=== PATIENT | male | born 1940 | race Caucasian/White ===

== ENCOUNTER 2019-04-17 10:34 | Inpatient (IN) ==
[2019-04-17] MEDS ORDERED: IOPAMIDOL 100 ML BOTTLE IV ONE (10:35)
[2019-04-17] MEDS ORDERED: LEVOFLOXACIN 750 MG/150 ML BAG IV ONE (11:10)
[2019-04-17] MEDS ORDERED: IPRATROPIUM/ALBUTEROL 3 ML AMPUL.NEB NEB ONE (11:12)
[2019-04-17] MEDS ORDERED: LEVOFLOXACIN 500 MG/100 ML BAG IV ONE (11:12)
[2019-04-17 11:28] LABS: Basophils # (Auto) 0 K/mcL (0.0-0.3); Basophils % (Auto) 0 % (0.0-2.0); Eosinophils # (Auto) 0.1 K/mcL (0.0-0.7); Eosinophils % (Auto) 0.9 % (0.0-7.0); Hematocrit 36.4 % (41.0-55.0); Hemoglobin 11.9 g/dL (13.5-16.5); Lymphocytes % (Auto) 10.9 % (15.5-49.0); Mean Cell Volume 78.9 fL (80.0-100.0); Mean Corpuscular HGB Conc 32.8 g/dL (31.0-36.0); Mean Platelet Volume 6.6 fL (7.4-10.4); Monocytes # (Auto) 0.6 K/mcL (0.1-0.9); Monocytes % (Auto) 7.2 % (1.0-12.0); Platelet Count 313 K/mcL (140-440); RBC 4.61 M/mcL (4.50-5.90); Red Cell Distribution Width 18.1 % (11.5-14.5); WBC 8.9 K/mcL (4.5-11.0)
--- NOTE | 2019-04-17 11:35 | XRay Report ---
CLINICAL INFORMATION: SOB COMPARISON: 03/23/2019 FINDINGS: Subtotal atelectasis of the left lung has developed with minimal residual apical aeration. There is leftward shifting of the cardiomediastinal silhouette. Moderate left pleural effusion noted. Right lung is well expanded and clear COPD noted. Cardiomediastinal silhouette is obscured by the opacified left hemithorax and difficult to evaluate. IMPRESSION: Near complete atelectasis of left lung with moderate left pleural effusion. Most common cause would be [place] of the the left mainstem bronchus with mucus or aspirated material. An obstructing tumor is possible, but less likely. Suggest chest CT Interpreted and Authenticated by: Woody Bernstein 04/17/19
[2019-04-17 11:59] LABS: ALT/SGPT 13 U/l (0-40); AST/SGOT 37 U/l (0-37); Albumin 2.9 gm/dL (3.2-5.2); Albumin/Globulin Ratio 0.8 (1.0-2.3); Alkaline Phosphatase 81 U/L (39-117); Bilirubin,Total 0.5 mg/dL (0.0-1.0); Blood Urea Nitrogen 11 mg/dl (8-23); Calcium 8.9 mg/dl (8.6-10.4); Carbon Dioxide 26 mmol/L (22-30); Chloride 83 mmol/L (96-108); Globulin 3.5 gm/dL (2.2-3.7); Glomerular Filtration Rate 102; Glucose 128 mg/dL (70-105)
--- NOTE | 2019-04-17 12:04 | Emergency Department Note ---
SOB HPI - General Chief Complaint: Shortness of Breath/Dyspnea Stated Complaint: Shortness of breath Time Seen by Provider: 04/17/19 10:57 Source: patient, EMS Mode of arrival: EMS Limitations: no limitations - History of Present Illness 78-year-old male presents with generalized weakness and shortness of breath that has been worsening over the last several weeks. A few weeks ago he was diagnosed with pneumonia and treated outpatient. Family member states they gave him a shot and put him on a Z-Brown. He is continued to be weak, have a cough, and was short of breath. This morning it seemed even worse and they called EMS to come pick him up. They note he is also been so weak that he has been falling a lot. He does live at home by himself. Positive chills but unknown fever. Patient is very poor historian. No nausea, vomiting, or diarrhea but does have a poor appetite. Family reports he continues to lose weight. No pedal edema. States he is short of breath all the time but definitely worse with exertion. Sitting up does not seem to help. Denies sore throat, ear pain, or other cold symptoms. States he has been dealing with back pain and left knee pain for a couple months and was told he has a compression fracture and pretty severe arthritis. - Related Data Home Medications Medication Instructions Recorded Confirmed No Known Home Meds 04/17/19 04/17/19 Allergies Allergy/AdvReac Type Severity Reaction Status Date / Time No Known Drug Allergies Allergy Verified 04/17/19 10:40 Review of Systems All systems ED: reviewed and negative except as stated. Past Medical History - Past Medical History [facility] Narrative: Medical History (Last Updated 04/13/19 @ 08:54 by Felipa Renae) Chronic neck pain (Chronic) Smoker (Chronic) COPD (chronic obstructive pulmonary disease) (Chronic) CAD (coronary artery disease) (Chronic) Fatigue (Chronic) Neck pain (Chronic) Family history of diabetes mellitus (Chronic) Sinusitis (Chronic) Abnormal radiologic finding of lung field (Chronic) Hyperlipidemia (Chronic) Left upper lobe pulmonary nodule (Chronic) Hypertension (Chronic) Lesion of face (Chronic) SOB (shortness of breath) (Chronic) Pneumonia (Chronic) Multiple fractures of ribs, left side, initial encounter for closed fracture (Chronic) Hyponatremia (Chronic) Past Surgical History (Last Updated 10/10/19 @ 08:54 by Felipa Renae) No pertinent past surgical history (Chronic) Medical history: Reports: other (Recent pneumonia and possible compression fracture in the lumbar spine) - Social History smoking status: Current every day smoker Physical Exam Limitations: no limitations General appearance: alert (Alert and responds appropriately but poor historian and forgetful.) Head: atraumatic, normocephalic, normal inspection Eye: Present: normal appearance. Absent: conjunctival injection ENT: Present: normal oropharynx, mucous membranes moist, TM's normal bilaterally, normal external ear exam Neck: Present: normal inspection, trachea midline. Absent: tenderness, lym phadenopathy Chest: Present: symmetric chest wall rise Respiratory: Present: respiratory distress (Mild tachypnea on arrival and oxygen saturations were originally 77% on room air but improved with oxygen.), rales/crackles (Coarse throughout but seem a little worse on the left.), accessory muscle use (mild) Cardiovascular: Present: tachycardia Abdominal: Present: soft, normal bowel sounds. Absent: distention, tenderness, mass Extremities: Present: normal inspection. Absent: pedal edema Neurological: Present: alert, oriented X3 Psychiatric: Present: normal affect, normal mood Skin: Present: warm, dry, intact, normal color, other (Frail-appearing) Course Course Narrative: CT scan shows large lung tumor with mets to liver. Pt (after much discussion with family) is adamant that he does not want any treatment or to see an oncologist. He just wants to be kept comfortable. He currently lives at home alone but would like to be admitted for a day or 2 and help get set up with hospice and then family will take him home and care for him at home where he would like to spend his final days and just be comfortable. @[id number] Dr. Hendrickson agrees to accept the patient. Vital Signs Temperature 98.3 F 04/17/19 10:35 Pulse Rate 118 H 04/17/19 10:35 Respiratory Rate 25 H 04/17/19 10:35 Blood Pressure 120/78 04/17/19 10:35 Pulse Oximetry (%) 86 L 04/17/19 10:35 Temperature 98.3 F 04/17/19 10:35 Pulse Rate 106 H 04/17/19 14:11 Respiratory Rate 15 04/17/19 14:11 Blood Pressure 129/75 04/17/19 14:21 Pulse Oximetry (%) 96 04/17/19 14:11 Shortness of Breath/Dyspnea - Lab Data Lab results reviewed: Yes I reviewed the patient's lab results. Result diagrams: 04/17/19 10:49 04/17/19 10:49 Lab Results 04/17/19 04/17/19 04/17/19 Range/Units 10:49 10:49 10:49 WBC 8.9 (4.5-11.0) K/mcL RBC 4.61 (4.50-5.90) M/mcL Hgb 11.9 L (13.5-16.5) g/dL Hct 36.4 L (41.0-55.0) % MCV 78.9 L (80.0-100.0) fL MCH 25.9 L (26.0-34.0) pg MCHC 32.8 (31.0-36.0) g/dL RDW 18.1 H (11.5-14.5) % Plt Count 313 (140-440) K/mcL MPV 6.6 L (7.4-10.4) fL Gran % 81.0 H (38.0-78.0) % Lymph % (Auto) 10.9 L (15.5-49.0) % [place] % (Auto) 7.2 (1.0-12.0) % Eos % (Auto) 0.9 (0.0-7.0) % Baso % (Auto) 0 (0.0-2.0) % Gran # 7.2 (1.8-8.0) K/mcL Lymph # (Auto) 1.0 L (1.5-4.8) K/mcL [place] # (Auto) 0.6 (0.1-0.9) K/mcL Eos # (Auto) 0.1 (0.0-0.7) K/mcL Baso # (Auto) 0 (0.0-0.3) K/mcL VBG Lactic Acid 1.7 (0.5-2.0) mmol/L Sodium 122 L (133-145) mmol/L Potassium 4.3 (3.3-5.1) mmol/L Chloride 83 L (96-108) mmol/L Carbon Dioxide 26 (22-30) mmol/L Anion Gap 13.0 (8-16) BUN 11 (8-23) mg/dl Creatinine 0.5 L (0.7-1.2) mg/dl GFR Calculation 102 Glucose 128 H (70-105) mg/dL Calcium 8.9 (8.6-10.4) mg/dl Total Bilirubin 0.5 (0.0-1.0) mg/dL AST 37 (0-37) U/l ALT 13 (0-40) U/l Alkaline Phosphatase 81 (39-117) U/L Total Protein 6.4 (5.9-8.4) gm/dL Albumin 2.9 L (3.2-5.2) gm/dL Globulin 3.5 (2.2-3.7) gm/dL Albumin/Globulin Ratio 0.8 L (1.0-2.3) Procalcitonin (<0.10) ng/mL 04/17/19 Range/Units 10:49 WBC (4.5-11.0) K/mcL RBC (4.50-5.90) M/mcL Hgb (13.5-16.5) g/dL Hct (41.0-55.0) % MCV (80.0-100.0) fL MCH (26.0-34.0) pg MCHC (31.0-36.0) g/dL RDW (11.5-14.5) % Plt Count (140-440) K/mcL MPV (7.4-10.4) fL Gran % (38.0-78.0) % Lymph % (Auto) (15.5-49.0) % [place] % (Auto) (1.0-12.0) % Eos % (Auto) (0.0-7.0) % Baso % (Auto) (0.0-2.0) % Gran # (1.8-8.0) K/mcL Lymph # (Auto) (1.5-4.8) K/mcL [place] # (Auto) (0.1-0.9) K/mcL Eos # (Auto) (0.0-0.7) K/mcL Baso # (Auto) (0.0-0.3) K/mcL VBG Lactic Acid (0.5-2.0) mmol/L Sodium (133-145) mmol/L Potassium (3.3-5.1) mmol/L Chloride (96-108) mmol/L Carbon Dioxide (22-30) mmol/L Anion Gap (8-16) BUN (8-23) mg/dl Creatinine (0.7-1.2) mg/dl GFR Calculation Glucose (70-105) mg/dL Calcium (8.6-10.4) mg/dl Total Bilirubin (0.0-1.0) mg/dL AST (0-37) U/l ALT (0-40) U/l Alkaline Phosphatase (39-117) U/L Total Protein (5.9-8.4) gm/dL Albumin (3.2-5.2) gm/dL Globulin (2.2-3.7) gm/dL Albumin/Globulin Ratio (1.0-2.3) Procalcitonin 0.41 (<0.10) ng/mL - Radiology Data Radiology results reviewed: Yes I reviewed the patient's radiology results. Disposition Pt seen by LUMP INSPECTOR/PA only: Yes Clinical Impression: Pneumonia, Hyponatremia, Generalized weakness, Recurrent falls, SOB (shortness of breath), Hypoxia, Lung mass Disposition: Xfer As Outpt/Obs ([facility]) Condition: Serious Referrals: Sachin Clifford MD [Primary Care Provider] - Time of Disposition: 15:25
[2019-04-17] MEDS ORDERED: NICOTINE 14 MG PATCH TOPICAL ONE (13:44)
--- NOTE | 2019-04-17 15:00 | Cat Scan Report ---
CLINICAL INFORMATION: History of smoking and weight loss. New onset left lung collapse COMPARISON: None. TECHNIQUE: 80 cc of Isovue-370 were injected intravenously, and 25 seconds later, 0.625 mm helical slices were obtained from the lung apices through the bases. Following reconstruction, 2.5 mm sagittal, coronal and axial reformations were processed and reviewed at lung, mediastinal and bone windows. 7 mm axial MIPS were also obtained to optimize pulmonary nodule detection. The exam was performed using radiation dose optimization techniques including, but not limited to, automated exposure control, adjustment of the mA and/or kV according to patient size and use of iterative reconstruction technique. FINDINGS: A large (4.3 x 6.1 cm) left hilar mass is encasing and obstructing the left mainstem bronchus resulting in near-complete left lung atelectasis with minimal residual aeration in the anterior segment left upper lobe. In addition to the mass, there are multiple moderately enlarged lymph nodes ranging up to 3.6 cm adjacent to the aortic arch, left hilum and pericarinal regions. Findings compatible with primary lung carcinoma with local metastatic adenopathy. As result of left lung collapse, there is leftward shifting of the cardiomediastinal silhouette and moderate left pleural effusion. Right lung shows mild centrilobular emphysema changes, but is otherwise clear without evidence of infiltrate. There is an 8 mm pleural-based nodule in the posterior basilar segment of the right lower lobe is likely of benign subpulmonic lymph node. The heart is mildly enlarged and extremely heavy atherosclerotic plaque in the coronary arteries. The central pulmonary arteries are mildly enlarged at 3.5 cm compatible with mild pulmonary hypertension. Thoracic aorta contains plaque is normal diameter. The distal thoracic esophagus is compressed by the massive adenopathy which could result in swallowing dysfunction. Images should the abdomen show scattered hepatic metastases: 3 cm subdiaphragmatic right hepatic lobe 14 mm anterior segment right hepatic lobe 2.6 cm the lateral segment left hepatic lobe three in the inferior right hepatic lobe ranging up to 12 mm. The gallbladder visualized kidneys and IMPRESSION: 1. Large (6 cm) left hilar mass encasing and obstructing the left mainstem bronchus resulting in subtotal atelectasis of the entire left lung. Multiple markedly enlarged lymph nodes in the left mediastinum and hilar region are compatible with metastatic adenopathy. In addition there are multiple hepatic metastases which are new from November 2007 CT. Findings compatible with advanced primary lung carcinoma with adenopathy and metastatic disease 2. Moderate left pleural effusion 3. Moderate centrilobular emphysema Interpreted and Authenticated by: Woody Bernstein 04/17/19
--- NOTE | 2019-04-17 16:07 | Internal Med History&Physical ---
Medical - H&P: HPI Patient information: Note initiated : 04/17/19 at 3:59 pm Service Date, if different from initiated Date: [] Patient: Matthew Gonzalez a 78 y/o M admitted on for Shortness of breath. Chief Complaint: [] History of present illness: Mr. Gonzalez is a 78 year old M Who presents the ED with shortness of breath and weakness. He has also fallen several times this week. Patient was seen at [facility] March for similar symptoms was diagnosed with pneumonia and given azithromycin. His symptoms have not improved. And of worsened and thus he presented again to the ED. Family states he has had poor oral intake because he has not much of appetite. He also lives by himself. He reports 50 pound weight loss over the past several months. He He was hypoxic in the mid 80s upon arrival In the ED he was found to have hyponatremia and chest x-ray showing complete whiteout of the left lung. CT of the chest showed a large 6cm hilar mass encasing and obstructing left mainstem bronchus resulting in subtotal atelectasis of the entire left lung multiple market enlarged lymph nodes in the left mediastinum and hilar region compatible with metastatic adenopathy. Also note multiple hepatic metastases. Also moderate pleural effusion and emphysema noted. These findings were presented to the family and and the patient and after discussion they/pt adamant about not seeking any treatment. He just wanted to be comfortable. Patient does live alone and family would like to set up hospice in the home and this course has been initiated. Review of Systems: Pertinent positives as above. Denies headache/fever/chills/nausea/vomiting/chest or abdominal pain/diarrhea. Remaining 10 point review of system reviewed negative Medical - H&P: PMH Medical history: Medical History (Last Updated 04/13/19 @ 08:54 by Felipa Renae) Chronic neck pain (Chronic) Smoker (Chronic) COPD (chronic obstructive pulmonary disease) (Chronic) CAD (coronary artery disease) (Chronic) Fatigue (Chronic) Neck pain (Chronic) Family history of diabetes mellitus (Chronic) Sinusitis (Chronic) Abnormal radiologic finding of lung field (Chronic) Hyperlipidemia (Chronic) Left upper lobe pulmonary nodule (Chronic) Hypertension (Chronic) Lesion of face (Chronic) SOB (shortness of breath) (Chronic) Pneumonia (Chronic) Multiple fractures of ribs, left side, initial encounter for closed fracture (Chronic) Hyponatremia (Chronic) Past Surgical History (Last Updated 04/13/19 @ 08:54 by Felipa Renae) Right leg surgery Family History (Last Updated 04/13/19 @ 08:55 by Felipa Renae) Mother Lung cancer Diabetes Father Heart problem Family/Other Diabetes Social History (Last Updated 04/13/19 @ 08:57 by Felipa Renae) Current everyday smoker only is down to half pack per day Denies alcohol use Use a cane to ambulate Lives by himself Medical - H&P: Meds Home Medications Medication Instructions Recorded Confirmed Type No Known Home Meds 04/17/19 04/17/19 History Allergies Allergy/AdvReac Type Severity Reaction Status Date / Time No Known Drug Allergies Allergy Verified 04/17/19 10:40 Medical - H&P: Exam - Constitutional Vitals: Temp Pulse Resp BP Pulse Ox 98.3 F 106 H 21 128/80 96 04/17/19 10:35 04/17/19 15:30 04/17/19 15:30 04/17/19 15:21 04/17/19 15:30 Exam: General: Alert, Awake, No acute Distress, cachectic Eyes/N/T: EOMI, PEERL, Head/Neck: neck supple, normocephalic atraumatic CV: RRR, No murmurs, normal s1/s2 Pulm: Left lung rhonchi rales, no wheezing abd: soft, nontender, +BS x4 Ext: no clubbing/cyanosis/edema Neuro: Alert, no focal deficits, moves all extremities, CN 2-12 grossly intact, symmetrical strength b/l upper/lower, sensations intact b/l upper/lower Skin: warm/dry Medical - H&P: Reslt - Labs CBC & Chem 7: 04/17/19 10:49 04/17/19 10:49 Labs: Short CBC 04/17/19 Range/Units 10:49 WBC 8.9 (4.5-11.0) K/mcL Hgb 11.9 L (13.5-16.5) g/dL Hct 36.4 L (41.0-55.0) % Plt Count 313 (140-440) K/mcL BMP 04/17/19 10:49 Sodium 122 L Potassium 4.3 Chloride 83 L Carbon Dioxide 26 BUN 11 Creatinine 0.5 L Glucose 128 H Calcium 8.9 Liver Function 04/17/19 Range/Units 10:49 Total Bilirubin 0.5 (0.0-1.0) mg/dL AST 37 (0-37) U/l ALT 13 (0-40) U/l Alkaline Phosphatase 81 (39-117) U/L Albumin 2.9 L (3.2-5.2) gm/dL - Impressions CT chest with 6 cm left hilar mass and caseating left mainstem bronchus large multiple enlarged lymph nodes in the mediastinum and liver masses noted Medical - H&P: A/P - Narrative A/P Narrative: A: *Large left lung mass obstructing left main bronchus with lymphadenopathy and liver masses: -Family does not want to work-up lung mass and want to focus on comfort *Acute hypoxic respiratory failure: *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
[2019-04-17] MEDS ORDERED: ONDANSETRON 4 MG/2 ML VIAL IV PRN (17:46)
[2019-04-17] MEDS ORDERED: POLYETHYLENE GLYCOL 3350 17 GM PACKET PO PRN (17:46)
[2019-04-17] MEDS ORDERED: SODIUM CHLORIDE 1 GM TABLET PO ONE (17:46)
[2019-04-17] MEDS ORDERED: SENNOSIDES 1 TABLET PO PRN (17:46)
[2019-04-17] MEDS ORDERED: PROCHLORPERAZINE 10 MG/2 ML VIAL IV PRN (17:46)
[2019-04-17] MEDS ORDERED: POTASSIUM CHLORIDE 20 MEQ TABLET PO PRN ×2 (17:46)
[2019-04-17] MEDS ORDERED: LACTULOSE 20 GM/30 ML ORAL.SOL PO PRN (17:46)
[2019-04-17] MEDS ORDERED: MAGNESIUM SULFATE 2 GM/50 ML BAG IV PRN (17:46)
[2019-04-17] MEDS ORDERED: POTASSIUM CHLORIDE 40 MEQ in DEXTROSE 5% IN WATER 500 ML IV PRN (17:46)
[2019-04-17] MEDS ORDERED: IPRATROPIUM/ALBUTEROL 3 ML AMPUL.NEB NEB PRN (17:46)
[2019-04-17] MEDS: CYCLOBENZAPRINE 10 MG TABLET PO PRN (20:40)
[2019-04-17] MEDS: HYDROcodone/APAP 5/325MG TABLET PO PRN (20:41)
[2019-04-17] MEDS: SODIUM CHLORIDE 1 GM TABLET PO SCH (20:57)
[2019-04-17] MEDS: DOCUSATE SODIUM 100 MG CAPSULE PO SCH (20:57)
[2019-04-17] MEDS: 0.9 % SODIUM CHLORIDE 10 ML SYRINGE IV SCH (22:10)
[2019-04-18] MEDS: HYDROcodone/APAP 5/325MG TABLET PO PRN ×3 (07:54→19:51)
[2019-04-18] MEDS: CYCLOBENZAPRINE 10 MG TABLET PO PRN ×2 (07:55→12:48)
--- NOTE | 2019-04-18 07:58 | Internal Med Progress Note ---
Medical - PN: Subj Patient information: Note initiated : 04/18/19 at 7:57 am Service Date, if different from initiated Date: [] Patient: Matthew Gonzalez a 78 y/o M admitted on 04/17/19 for Shortness of breath. Chief Complaint: [] Interval history: Mr. Gonzalez is a 78 year old M Who presents the ED with shortness of breath and weakness. He has also fallen several times this week. Patient was seen at [facility] March for similar symptoms was diagnosed with pneumonia and given azithromycin. His symptoms have not improved. And of worsened and thus he presented again to the ED. Family states he has had poor oral intake because he has not much of appetite. He also lives by himself. He reports 50 pound weight loss over the past several months. He He was hypoxic in the mid 80s upon arrival In the ED he was found to have hyponatremia and chest x-ray showing complete whiteout of the left lung. CT of the chest showed a large 6cm hilar mass encasing and obstructing left mainstem bronchus resulting in subtotal atelectasis of the entire left lung multiple market enlarged lymph nodes in the left mediastinum and hilar region compatible with metastatic adenopathy. Also note multiple hepatic metastases. Also moderate pleural effusion and emphysema noted. These findings were presented to the family and and the patient and after discussion they/pt adamant about not seeking any treatment. He just wanted to be comfortable. Patient does live alone and family would like to set up hospice in the home and this course has been initiated. 04/18 States shortness of breath when he moves around too much grounds. Low back pain from bed. Patient tired with his left wrist. Review of Systems: denies headache/fever/chills/nausea/vomiting/chest or abdominal pain/cough/diarrhea. Otherwise see above. - Constitutional Vitals: Vital Signs Temp Pulse Resp BP Pulse Ox 98.8 F 98 H 24 H 120/72 90 04/18/19 04:00 04/18/19 04:00 04/18/19 04:00 04/18/19 04:00 04/18/19 04:00 Period Temp Pulse Resp BP Sys/Alejo Pulse Ox Last 24 Hr 98.3 F-98.9 F 98-118 13-27 100-163/57-106 86-97 Intake and Output 04/17/19 04/18/19 04/18/19 21:59 05:59 13:59 Output Total 250 Balance -250 Weight 64.637 kg Intake & Output: Intake & Output 04/17/19 04/18/19 04/18/19 21:59 05:59 13:59 Output Total 250 Balance -250 Weight 64.637 kg Output: Void Amount 250 Other: Urine Color Pale Urine Odor Normal # Voids 3 Exam: General: Alert, Awake, No acute Distress, cachectic Eyes/N/T: EOMI, , Head/Neck: neck supple, CV: RRR, No murmurs, Pulm: Left lung rhonchi rales, no wheezing abd: soft, nontender, +BS x4 Ext: no clubbing/cyanosis/edema Neuro: Alert, no focal deficits, moves all extremities, Skin: warm/dry Medical - PN: Obj Da - Labs CBC & Chem 7: 04/17/19 10:49 04/17/19 10:49 Labs: Abnormal Lab Results 04/17/19 04/17/19 10:49 10:49 Hgb 11.9 L Hct 36.4 L MCV 78.9 L MCH 25.9 L RDW 18.1 H MPV 6.6 L Gran % 81.0 H Lymph % (Auto) 10.9 L Lymph # (Auto) 1.0 L Sodium 122 L Chloride 83 L Creatinine 0.5 L Glucose 128 H Albumin 2.9 L Albumin/Globulin Ratio 0.8 L Meds: Medications Hydrocodone Bitart/Acetaminophen ([place] 5/325mg) 1 tab PO Q4-6HP PRN; Protocol PRN Reason: Per Pain Protocol Last Admin: 04/18/19 07:54 Dose: 1 tab Documented by: Albuterol/Ipratropium (Duoneb) 3 ml NEB Q4HP PRN PRN Reason: Shortness Of Breath Cyclobenzaprine HCl (Flexeril) 10 mg PO TIDP PRN PRN Reason: Muscle Spasm Last Admin: 04/18/19 07:55 Dose: 10 mg Documented by: Docusate Sodium (Colace) 100 mg PO BID [facility] Last Admin: 04/17/19 20:57 Dose: Not Given Documented by: Enoxaparin Sodium (Lovenox) 40 mg SQ DAILY [facility] Potassium Chloride 40 meq/ (Dextrose) 520 mls @ 130 mls/hr IV UD PRN PRN Reason: Potassium < 3 Magnesium Sulfate (Magnesium Sulfate) 2 gm in 50 mls @ 50 mls/hr IV UD PRN PRN Reason: Magnesium </= 1.6 Lactulose (Cephulac) 10 gm PO DAILYP PRN PRN Reason: Constipation Ondansetron HCl (Zofran) 4 mg IV Q4HP PRN PRN Reason: Nausea And Vomiting Polyethylene Glycol (Miralax) 17 gm PO DAILYP PRN PRN Reason: Constipation Potassium Chloride (Kdur) 40 meq PO UD PRN PRN Reason: Potssium is 3-3.5 Potassium Chloride (Kdur) 40 meq PO UD PRN PRN Reason: Potassium < 3 Prochlorperazine (Compazine) 10 mg IV Q6HP PRN PRN Reason: Nausea And Vomiting Senna (Senokot) 2 tab PO HSP PRN PRN Reason: Constipation Sodium Chloride (Saline Flush) 10 ml IV Q8 [facility] Last Admin: 04/17/19 22:10 Dose: 10 ml Documented by: Sodium Chloride (Sodium Chloride) 1 gm PO TID [facility] Last Admin: 04/17/19 20:57 Dose: Not Given Documented by: Medical - PN: A/P - Time Spent With Patient Total time spent is greater than 50% in coordination of care (as documented) at patient's floor/unit and/or counseling patient: - Narrative A/P Narrative: A: *Large left lung mass obstructing left main bronchus with lymphadenopathy and liver masses: -Family does not want to work-up lung mass and want to focus on comfort *Acute hypoxic respiratory failure: *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
[2019-04-18 09:28] LABS: ALT/SGPT 11 U/l (0-40); AST/SGOT 33 U/l (0-37); Albumin/Globulin Ratio 0.9 (1.0-2.3); Alkaline Phosphatase 78 U/L (39-117); Bilirubin,Direct < 0.2 mg/dL (0.0-0.3); Bilirubin,Total 0.5 mg/dL (0.0-1.0); Blood Urea Nitrogen 10 mg/dl (8-23); Calcium 9.1 mg/dl (8.6-10.4); Carbon Dioxide 28 mmol/L (22-30); Chloride 91 mmol/L (96-108); Globulin 3.3 gm/dL (2.2-3.7); Glomerular Filtration Rate 102; Glucose 104 mg/dL (70-105); Lactate Dehydrogenase 521 U/L (94-250); Phosphorous 3.6 mg/dL (2.7-4.5); Triglycerides 108 mg/dl (<150)
[2019-04-18] MEDS ORDERED: LACTOPEROXI/GLUC OXID/POT THIO 1 EACH GEL..EA. TOPICAL PRN (09:49)
[2019-04-18] MEDS: 0.9 % SODIUM CHLORIDE 10 ML SYRINGE IV SCH ×3 (09:55→22:30)
[2019-04-18] MEDS ORDERED: SODIUM CHLORIDE NASAL 1 SPRAY BOTTLE NAS PRN (11:49)
[2019-04-18] MEDS ORDERED: morphine 20 MG/ML ORAL.CONC SL PRN (12:32)
[2019-04-18] MEDS: ENOXAPARIN 40 MG/0.4 ML SYRINGE SQ SCH (14:02)
[2019-04-18] MEDS: DOCUSATE SODIUM 100 MG CAPSULE PO SCH ×2 (14:02→21:00)
[2019-04-18] MEDS: SODIUM CHLORIDE 1 GM TABLET PO SCH (14:04)
[2019-04-18] MEDS: NICOTINE 21 MG PATCH TOPICAL SCH (17:26)
[2019-04-19] MEDS: ENOXAPARIN 40 MG/0.4 ML SYRINGE SQ SCH (08:49)
[2019-04-19] MEDS: DOCUSATE SODIUM 100 MG CAPSULE PO SCH (09:26)
[2019-04-19] MEDS: NICOTINE 21 MG PATCH TOPICAL SCH (09:26)
[2019-04-19] MEDS: HYDROcodone/APAP 5/325MG TABLET PO PRN (09:58)
[2019-04-19] MEDS: CYCLOBENZAPRINE 10 MG TABLET PO PRN (09:59)
--- NOTE | 2019-04-19 11:55 | Discharge Summary ---
Medical - DS: Prov Patient information: Note initiated : 04/19/19 at 11:52 am Service Date, if different from initiated Date: [] Patient: Matthew Gonzalez 78 y/o M admitted on 04/17/19 for Shortness of breath. Chief Complaint: [] Date of admission: 04/17/19 17:20 Discharge date: 04/19/19 Primary care physician: Sachin Clifford Consults: 04/17/19 Consult to Physician [CONS] Stat Comment: Consulting Provider: Alex Hendrickson Reason For Exam: Physician to Consult Medical - DS: Meds - Discharge Medications Prescriptions: LORazepam [Ativan] 1 - 2 mg PO Q2H PRN #30 ml PRN Reason: Anxiety Hyoscyamine Sulfate [Levsin-Sl] 0.125 mg SL QID PRN #20 tab.subl PRN Reason: Secretions Transmission Status: Pending to [facility] 2005 Ondansetron HCl [Zofran] 4 mg SL Q4H #1 ml [facility] Active and Home Medications: Home Medications Cyclobenzaprine [Flexeril] 10 mg PO TID 04/17/19 [History Confirmed 04/17/19 Last Taken Unknown] HYDROcodone/APAP 5/325MG 5 mg Q4-6HP PRN 04/17/19 [History Confirmed 04/17/19 Last Taken Unknown] Medical - DS: Hosp Hospital Course: Mr. Gonzalez is a 78 year old M Who presents the ED with shortness of breath and weakness. He has also fallen several times this week. Patient was seen at [facility] March for similar symptoms was diagnosed with pneumonia and given azithromycin. His symptoms have not improved. And of worsened and thus he presented again to the ED. Family states he has had poor oral intake because he has not much of appetite. He also lives by himself. He reports 50 pound weight loss over the past several months. He He was hypoxic in the mid 80s upon arrival In the ED he was found to have hyponatremia and chest x-ray showing complete whiteout of the left lung. CT of the chest showed a large 6cm hilar mass encasing and obstructing left mainstem bronchus resulting in subtotal atelectasis of the entire left lung multiple market enlarged lymph nodes in the left mediastinum and hilar region compatible with metastatic adenopathy. Also note multiple hepatic metastases. Also moderate pleural effusion and emphysema noted. These findings were presented to the family and and the patient and after discussion they/pt adamant about not seeking any treatment. He just wanted to be comfortable. Patient does live alone and family would like to set up hospice in the home and this course has been initiated. 04/18 States shortness of breath when he moves around too much grounds. Low back pain from bed. Patient tired with his left wrist. 04/19 Case management able to work with hospice [facility] care and home hospice set up today. Discharge diagnosis: Large left lung mass obstructing left main bronchus with severe lymphadenop Secondary discharge diagnosis: With severe lymphadenopathy and liver masses, acute hypoxic respiratory failure next hyponatremia next anemia next cachexia failure to thrive significant weight loss - Time Spent with Patient Total time spent providing and/or coordinating discharge services: Greater than 30 minutes Medical - DS: Exam - Constitutional Vitals: Vital Signs Temp Pulse Resp BP Pulse Ox 04/19/19 11:35 93 04/19/19 11:33 93 04/19/19 07:36 98.3 F 120 H 22 153/81 90 04/18/19 23:33 91 04/18/19 23:32 98.1 F 98 H 18 148/68 85 L 04/18/19 19:30 98.3 F 106 H 20 128/66 92 Intake and Output 04/18/19 04/19/19 04/19/19 21:59 05:59 13:59 Intake Total 600 0 Balance 600 0 Intake: Oral 600 0 Other: Weight 63.957 kg Medical - DS: Data Labs on day of discharge: Preliminary micro results at discharge 04/17/19 11:00 Blood Culture - Preliminary Blood 04/17/19 10:56 Blood Culture - Preliminary Blood Medical - DS: A/P - Patient/Caregiver Discharge Instructions Activity: increase activity as tolerated Diet: Regular Diet - Follow up Plan Follow up with: Sachin Clifford MD [Primary Care Provider] - (See your PCP as needed) Disposition: Hospice - Home Prognosis: Serious Rehab Potential: Undetermined Overall status at discharge: patient is not back to baseline Medical - DS: Qual - VTE Deep Vein Thrombosis/Pulmonary Embolism Present on Admission: No
== END 2019-04-19 14:10 | disposition hospice, home (50) | DRG 204 ==
LOC: ED 10:34 → ICU 17:20
PROVIDERS: ADMIT Internal Medicine; ATTEND Internal Medicine